=== PATIENT | female | born 1945 | race Caucasian/White ===

== ENCOUNTER → 2024-06-20 | Outpatient (CLI) | payer MEDICARE, SELFPAY ==
--- NOTE | 2024-06-20 09:39 | XR_ITS ---
Examination: Thoracic spine 3 views Technique one AP lateral coned lateral upper dorsal spine 3 views Exam date and time: June 20, 2024 10:00 AM Indications: Back pain beginning several years ago. 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
--- NOTE | 2024-06-20 09:39 | XR_ITS ---
Examination: Lumbar spine, 5 views Technique: Lumbar spine AP, lateral, coned lateral lower lumbar spine, bilateral obliques 5 views Exam date and time: June 20, 2019 5:10 AM Indications: Back pain several years. Findings: Lumbar levoscoliosis 15 degrees Diffuse advanced facet arthropathy Diffuse moderate to advanced lumbar degenerative disc disease, most severe L5-S1 No spondylolisthesis Impression: Diffuse moderate to advanced lumbar degenerative disc disease, most severe L5-S1
== END | disposition home or self-care (01) ==
PROVIDERS: PCP Internal Medicine; Referring Provider Orthopaedic Surgery; Visit Provider Orthopaedic Surgery
DX: M51.369 Other intervertebral disc degeneration, lumbar region without mention of lumbar back pain or lower extremity pain (principal); M51.379 Other intervertebral disc degeneration, lumbosacral region without mention of lumbar back pain or lower extremity pain; M41.86 Other forms of scoliosis, lumbar region; M41.85 Other forms of scoliosis, thoracolumbar region; M41.84 Other forms of scoliosis, thoracic region; M51.34 Other intervertebral disc degeneration, thoracic region; M50.321 Other cervical disc degeneration at C4-C5 level
CPT/HCPCS: 72070; 72110

== ENCOUNTER → 2024-06-28 | Outpatient (CLI) | payer MEDICARE, SELFPAY ==
--- NOTE | 2024-06-28 08:30 | XR_ITS ---
Examination: MRI lumbar spine without contrast Date and time of exam: June 28, 2024 0901 hours Comparison August 03, 2023 Technique: Multiple MRI axial and sagittal sections lumbar spine. Sagittal T2-weighted images, TR 3500, TE 118 T1 weighted transverse sections, TR 688 T8.5, T2-weighted sagittal sections T1 weighted sagittal sections TR 621, TE 30 T2 axial sections, TR 4, 190, TE 84. Indications: Low back pain radiating down the left leg 2 years worse the last 6 months FINDINGS: No lumbar fracture Advanced disc narrowing L4-L5, L5-S1 L5-S1 6 mm central right paracentral disc bulge contiguous with the right S1 nerve root L4-L5 6 mm central lumbar disc bulge, marked left facet arthropathy, axial image 5 severely encroaching upon the lateral left aspect of the thecal sac L3-L4 no disc protrusion L2-L3 small foraminal disc bulges L1-L2 no disc protrusion IMPRESSION: L5-S1 6 mm central right paracentral disc bulge L4-L5 6 mm central lumbar disc bulge, marked left facet arthropathy severely encroaching upon the lateral left aspect of the thecal sac
== END | disposition home or self-care (01) ==
LOC: SMRI 07:42
PROVIDERS: PCP Internal Medicine; Referring Provider Internal Medicine; Visit Provider Internal Medicine
DX: M51.379 Other intervertebral disc degeneration, lumbosacral region without mention of lumbar back pain or lower extremity pain (principal); M51.369 Other intervertebral disc degeneration, lumbar region without mention of lumbar back pain or lower extremity pain; M47.896 Other spondylosis, lumbar region
CPT/HCPCS: 72148

== ENCOUNTER → 2024-06-28 | Outpatient (CLI) | payer MEDICARE, SELFPAY ==
[2024-06-28 11:25] LABS: Basophils # (Auto) 0.1 Thou/mm3 (0.0-0.2); Basophils % (Auto) 1 % (0-2.5); Eosinophils # (Auto) 0.2 Thou/mm3 (0.0-0.5); Eosinophils % (Auto) 3 % (0-10); Hematocrit 44.1 % (36.0-46.0); Hemoglobin 14.3 g/dL (12.0-16.0); Immature Granulocytes % (Auto) 1 % (0-0); Immature Granulocytes Auto 0.07 Thou/mm3 (0.00-0.00); Lymphocytes % (Auto) 28 % (10-50); Mean Corpuscular HGB Conc 32.4 g/dl (31.0-37.0); Mean Corpuscular Hemoglobin 29.2 pg (25.0-35.0); Mean Corpuscular Volume 90 fL (80-100); Monocytes # (Auto) 0.3 Thou/mm3 (0.0-0.8); Monocytes % (Auto) 5 % (0-12); Neutrophils # (Auto) 4.5 Thou/mm3 (1.8-7.7); Neutrophils % (Auto) 63 % (37-80); Nucleated Red Blood Cell % 0 /100 WBC (0); Platelet Count 222 Thou/mm3 (140-440); RDW Standard Deviation 46.5 fL (36.4-46.3); Red Blood Count 4.89 Miln/mm3 (4.00-5.20); White Blood Count 7.1 Thou/mm3 (3.6-11.0)
[2024-06-28 11:39] LABS: Anion Gap 6 (7-16); BUN/Creatinine Ratio 24 Ratio (12-20); Blood Urea Nitrogen 19 mg/dL (9-23); Calcium 10.5 mg/dL (8.3-10.6); Carbon Dioxide 28.2 mMol/L (20.0-31.0); Chloride 108 mMol/L (98-107); Creatinine (Component) 0.8 mg/dL (0.6-1.3); Glucose 88 mg/dL (74-106); Osmolality,Calculated 284 (275-295); Sodium 142 mMol/L (136-145); eGFR > 60 See Note
[2024-06-28 11:46] LABS: Ferritin 23 ng/mL (7.3-270.7); Iron 93 mcg/dL (50-170); Total Iron Binding Capacity 312 mcg/dL (250-425)
== END | disposition home or self-care (01) ==
PROVIDERS: PCP Internal Medicine; Referring Provider Internal Medicine; Visit Provider Internal Medicine
DX: D50.8 Other iron deficiency anemias (principal)
CPT/HCPCS: 36415; 80048; 82728; 83540; 83550; 85025

== ENCOUNTER → 2025-01-23 | Outpatient (CLI) | payer MEDICARE, SELFPAY ==
--- NOTE | 2025-01-23 13:00 | XR_ITS ---
Examination: Bone densitometry Date and time of exam:January 23, 2025, 1304 hours INDICATIONS: Menopause age 49 Technique: Lumbar spine and hip total bone mineralization values of an calculated. Peak reference and age match control results have been displayed. Findings: Lumbar spine total bone mineralization is1.0 gm/cm2. This is 0.4 standard deviations below peak reference. This is 2.3 standard deviations above age-matched controls. Hip total bone mineralization is 0.626 gm/cm2 This is 2.6 standard deviations below peak reference. This is 0.5 standard deviations below age-matched controls Impression: There is normal mineralization based on lumbar spine measurements. There is osteoporosis based on hip measurements
== END | disposition home or self-care (01) ==
LOC: CDIM 12:46
PROVIDERS: PCP Internal Medicine; Referring Provider Internal Medicine; Visit Provider Internal Medicine
DX: M81.0 Age-related osteoporosis without current pathological fracture (principal)
CPT/HCPCS: 77080